=== PATIENT | female | born 1970 | race Two or more races ===

== ENCOUNTER 2021-04-03 19:14 | Inpatient (IN) | payer MEDICAID, OTHER ==
[~2021-04-03] VITALS: Ht 162.6 cm; Wt 62.5 kg
[2021-04-03] MEDS ORDERED: NALOXONE HCL 1MG/ML 2ML SYRINGE IV ONE (19:30)
[2021-04-03 20:14] LABS: Basophils # (auto) 0 10 ^3/uL (0-0.2); Basophils % (auto) 0.8 % (0.0-2.0); Eosinophils # (auto) 0.1 10 ^3/uL (0-0.8); Eosinophils % (auto) 3.5 % (0.0-7.0); Hematocrit 41.3 % (36.0-46.0); Hemoglobin 13.7 g/dL (12.2-16.2); Lymphocytes # (auto) 0.4 10 ^3/uL (0.4-5.4); Lymphocytes % (auto) 15.2 % (10.0-50.0); Mean Corpuscular Hemoglobin 32.6 pg (28.0-32.0); Mean Corpuscular Hgb Conc. 33.2 g/dL (32.0-36.0); Mean Corpuscular Volume 98.2 fL (80.0-100.0); Monocytes # (auto) 0.3 10 ^3/uL (0-1.3); Monocytes % (auto) 10.9 % (0.0-12.0); Neutrophils # (auto) 1.9 10 ^3/uL (1.6-8.6); Neutrophils % (auto) 69.6 % (37.0-80.0); Nucleated Red Blood Cells % 2.2 %; Red Blood Cells 4.21 10^6/uL (4.0-5.20); Red Cell Distribution Width 13.6 % (11.8-14.3); White Blood Cell 2.7 10^3/uL (4.4-10.8)
[2021-04-03 20:28] LABS: INR 0.97 (0.9-1.15); Partial Thromboplastin Time 28.2 sec (23.6-33.0)
[2021-04-03 20:33] LABS: Urine Bacteria FEW /hpf (None Seen); Urine Blood Negative /uL (Negative); Urine Budding Yeast FEW /hpf (None Seen); Urine Hyaline Cast MANY /lpf (0 - 2); Urine Mucus FEW (None Seen); Urine Specific Gravity 1.018 (1.001-1.035); Urine WBC 18 /hpf (0 - 5); Urine WBC Clumps PRESENT /hpf (None Seen)
[2021-04-03 20:33] LABS: Albumin 3.6 g/dL (3.4-5.0); Anion Gap 9 (5-15); BUN/Creatinine Ratio 14.5; Blood Alcohol < 3.0 mg/dL (0-5); Blood Urea Nitrogen 8 mg/dL (7-18); Calcium 8.5 mg/dL (8.5-10.1); Carbon Dioxide 25 mmol/L (21-32); Chloride 105 mmol/L (98-107); GFR African American 150 mL/min; GFR Non-African American 124 mL/min; Glucose 99 mg/dL (74-106); Potassium 3.7 mmol/L (3.5-5.1); Sodium 139 mmol/L (136-145)
[2021-04-03 20:36] LABS: Alanine Aminotransferase 82 U/L (13-56); Alkaline Phosphatase 81 U/L (45-117); Aspartate Aminotransferase 72 U/L (15-37); Bilirubin, Total 0.5 mg/dL (0.2-1.0); Total Protein 7.2 g/dL (6.4-8.2)
[2021-04-03 20:59] LABS: Alcohol, Urine < 3.0 mg/dL (0-10); Amphetamine Screen, Urine NEGATIVE (NEGATIVE); Barbiturate Scree,Urine NEGATIVE (NEGATIVE); Benzodiazephine Screen, Urine NEGATIVE (NEGATIVE); Cannabinoid Screen, Urine NEGATIVE (NEGATIVE); Cocaine Screen, Urine NEGATIVE (NEGATIVE); Opiate Scree,Urine NEGATIVE (NEGATIVE); Phencyclidine Screen, Urine NEGATIVE (NEGATIVE)
[2021-04-03] MEDS ORDERED: ONDANSETRON HCL 4 MG/2 ML VIAL IV PRN (22:00)
[2021-04-03] MEDS ORDERED: cefTRIAXone 1GM/50ML D5W 50 ML IV ONE (22:00)
[2021-04-03] MEDS ORDERED: hydrALAZINE HCL 20 MG/ML VL IV PRN (22:00)
[2021-04-03] MEDS ORDERED: ACETAMINOPHEN 325 MG TAB PO PRN (22:00)
[2021-04-04] MEDS ORDERED: VANCOMYCIN PER PHARMACY 0 MG IV SCH (00:15)
[2021-04-04] MEDS ORDERED: VANCOMYCIN 1GM/250ML 250 ML IV ONE ×2 (00:45→04:00)
[2021-04-04] MEDS ORDERED: hydrALAZINE HCL 10 MG TAB PO PRN (03:00)
[2021-04-04] MEDS ORDERED: ACETAMINOPHEN 325 MG TAB PO PRN (03:00)
[2021-04-04] MEDS ORDERED: ONDANSETRON HCL 4 MG/2 ML VIAL IV PRN (03:00)
[2021-04-04] MEDS: MORPHINE SULFATE INJECTION 2 MG/ML SYRG IV PRN ×2 (03:37→23:51)
[2021-04-04] MEDS ORDERED: DICL1GEL50 TOP (04:20)
[2021-04-04] MEDS ORDERED: MAGN241.6 PO (04:20)
[2021-04-04] MEDS ORDERED: BACL10TA PO (04:20)
[2021-04-04] MEDS ORDERED: FLUO20CA90 PO (04:20)
[2021-04-04] MEDS ORDERED: GABA-339 PO (04:20)
[2021-04-04] MEDS ORDERED: LOS25T PO (04:20)
[2021-04-04] MEDS ORDERED: IBUP800T26 PO (04:20)
[2021-04-04] MEDS ORDERED: PRE5T PO (04:20)
[2021-04-04] MEDS ORDERED: CHOL20002 PO (04:20)
[2021-04-04] MEDS ORDERED: AZAT50TA2 PO (04:20)
[2021-04-04] MEDS ORDERED: MAGN400T40 PO (04:20)
[2021-04-04 04:24] VITALS: BP 164/93
[2021-04-04 05:00] VITALS: BP 129/77
[2021-04-04] MEDS ORDERED: PIPERACILLIN-TAZOB 3.375GM 100 ML IV SCH (06:00)
[2021-04-04] MEDS ORDERED: cefTRIAXone 1GM/50ML D5W 50 ML IV SCH (09:00)
[2021-04-04 09:01] LABS: Basophils # (auto) 0 10 ^3/uL (0-0.2); Basophils % (auto) 0.8 % (0.0-2.0); Eosinophils # (auto) 0 10 ^3/uL (0-0.8); Eosinophils % (auto) 0.2 % (0.0-7.0); Hematocrit 40.8 % (36.0-46.0); Hemoglobin 13.8 g/dL (12.2-16.2); Lymphocytes # (auto) 0.5 10 ^3/uL (0.4-5.4); Lymphocytes % (auto) 14.1 % (10.0-50.0); Mean Corpuscular Hgb Conc. 33.7 g/dL (32.0-36.0); Mean Corpuscular Volume 97.8 fL (80.0-100.0); Monocytes # (auto) 0.3 10 ^3/uL (0-1.3); Monocytes % (auto) 7.9 % (0.0-12.0); Neutrophils # (auto) 2.6 10 ^3/uL (1.6-8.6); Nucleated Red Blood Cells % 0.7 %; Red Blood Cells 4.16 10^6/uL (4.0-5.20); Red Cell Distribution Width 13.4 % (11.8-14.3); White Blood Cell 3.4 10^3/uL (4.4-10.8)
[2021-04-04 09:13] LABS: Albumin 3.6 g/dL (3.4-5.0); Calcium 8.3 mg/dL (8.5-10.1); Potassium 3.4 mmol/L (3.5-5.1)
[2021-04-04 09:14] VITALS: BP 142/82
[2021-04-04 09:19] LABS: BUN/Creatinine Ratio 17.4; Bilirubin, Total 0.5 mg/dL (0.2-1.0); Total Protein 6.9 g/dL (6.4-8.2)
[2021-04-04] MEDS ORDERED: PROP60CA34 PO (09:38)
[2021-04-04] MEDS ORDERED: HYDR-4833 PO (09:38)
[2021-04-04] MEDS ORDERED: CARB200T4 PO (09:38)
[2021-04-04] MEDS ORDERED: CHOL20007 PO (09:38)
[2021-04-04] MEDS: ASCORBIC ACID 500 MG TAB PO SCH (10:00)
[2021-04-04] MEDS ORDERED: PANTOPRAZOLE 40 MG TAB PO SCH (10:00)
[2021-04-04] MEDS: FAMOTIDINE 20 MG TAB PO SCH ×2 (10:00→21:46)
[2021-04-04] MEDS: ASPirin 81 mg TAB PO SCH (10:00)
[2021-04-04 12:33] VITALS: BP 139/80
[2021-04-04] MEDS ORDERED: LORazepam 2MG/ML-1ML VIAL IV PRN (14:45)
[2021-04-04] MEDS ORDERED: VANCOMYCIN 1GM/250ML 250 ML IV SCH (16:00)
[2021-04-04 17:56] VITALS: BP 135/87
[2021-04-04] MEDS ORDERED: FLUoxetine HCL 20 MG CAP PO SCH (18:15)
[2021-04-04] MEDS ORDERED: POTASSIUM CHLORIDE 20 MEQ, LIDOCAINE 1% (LOCAL ANESTH.) 2 ML in SODIUM CHL 0.9% 100 ML IV ONE (18:15)
[2021-04-04] MEDS: levoFLOXacin 500MG 100 ML IV SCH (18:30)
[2021-04-04 22:00] VITALS: BP 105/83
[2021-04-04] MEDS ORDERED: ATORVASTATIN 20 MG TAB PO SCH ×2 (22:00)
[2021-04-05 05:00] VITALS: BP 138/76
[2021-04-05] MEDS: HYDROcodone-ACET 5/325MG TAB PO PRN ×2 (05:38→14:17)
[2021-04-05 06:34] LABS: Basophils # (auto) 0 10 ^3/uL (0-0.2); Basophils % (auto) 0.2 % (0.0-2.0); Eosinophils # (auto) 0 10 ^3/uL (0-0.8); Eosinophils % (auto) 0.2 % (0.0-7.0); Hematocrit 39.2 % (36.0-46.0); Hemoglobin 13.3 g/dL (12.2-16.2); Lymphocytes # (auto) 0.5 10 ^3/uL (0.4-5.4); Lymphocytes % (auto) 19.3 % (10.0-50.0); Mean Corpuscular Hemoglobin 32.8 pg (28.0-32.0); Mean Corpuscular Hgb Conc. 33.8 g/dL (32.0-36.0); Mean Corpuscular Volume 97.1 fL (80.0-100.0); Monocytes # (auto) 0.3 10 ^3/uL (0-1.3); Monocytes % (auto) 12.2 % (0.0-12.0); Neutrophils # (auto) 1.8 10 ^3/uL (1.6-8.6); Neutrophils % (auto) 68.1 % (37.0-80.0); Nucleated Red Blood Cells % 0.3 %; Red Blood Cells 4.04 10^6/uL (4.0-5.20); Red Cell Distribution Width 13.6 % (11.8-14.3); White Blood Cell 2.6 10^3/uL (4.4-10.8)
[2021-04-05 07:08] LABS: Calcium 8.4 mg/dL (8.5-10.1); Potassium 3.7 mmol/L (3.5-5.1)
[2021-04-05 07:14] LABS: Albumin 3.5 g/dL (3.4-5.0); BUN/Creatinine Ratio 25.6; Bilirubin, Direct 0.3 mg/dL (0-0.2); Bilirubin, Total 0.9 mg/dL (0.2-1.0); Total Protein 6.8 g/dL (6.4-8.2)
[2021-04-05 08:30] VITALS: BP 146/91
[2021-04-05] MEDS: ASCORBIC ACID 500 MG TAB PO SCH (09:22)
[2021-04-05] MEDS: FAMOTIDINE 20 MG TAB PO SCH (09:22)
[2021-04-05] MEDS: ASPirin 81 mg TAB PO SCH (09:23)
[2021-04-05] MEDS: MORPHINE SULFATE INJECTION 2 MG/ML SYRG IV PRN ×2 (10:20→18:06)
[2021-04-05 12:30] VITALS: BP 132/87
[2021-04-05 13:37] LABS: Hepatitis A Ab IgM Negative
[2021-04-05 13:44] LABS: Folate (Folic Acid) 12.54 ng/mL (5.38-24)
[2021-04-05 13:57] LABS: Hepatitis B Core IgM Negative
[2021-04-05 14:05] LABS: Hepatitis C Antibody Negative (Negative)
[2021-04-05 17:00] VITALS: BP 133/90
[2021-04-05] MEDS: levoFLOXacin 500MG 100 ML IV SCH (17:59)
[2021-04-05] MEDS ORDERED: LEVO500T31 PO ×2 (18:24)
[2021-04-05] MEDS ORDERED: ZINC220T6 PO (18:24)
[2021-04-05] MEDS ORDERED: CHOL20007 PO (18:24)
[2021-04-05] MEDS ORDERED: ASCO500T11 PO (18:24)
[2021-04-05 18:36] VITALS: BP 129/88
== END 2021-04-05 20:20 | disposition home health service (06) | DRG 720 ==
LOC: EDBD 19:14 → ER 19:18 → OVERFLOW 21:46 → CENTRAL 22:22 → OVERFLOW 23:20 → EAST 04-04 01:44
PROVIDERS: ADMIT Nurse Practitioner; ATTEND Internal Medicine
DX: A41.9 Sepsis, unspecified organism (principal); J12.82 Pneumonia due to coronavirus disease 2019; G93.41 Metabolic encephalopathy; U07.1 COVID-19; N39.0 Urinary tract infection, site not specified; F32.A Depression, unspecified; M79.7 Fibromyalgia; G89.4 Chronic pain syndrome; E87.6 Hypokalemia; I10 Essential (primary) hypertension; M47.812 Spondylosis without myelopathy or radiculopathy, cervical region; Z82.49 Family history of ischemic heart disease and other diseases of the circulatory system; Z90.710 Acquired absence of both cervix and uterus; Z88.0 Allergy status to penicillin
CPT/HCPCS: 36415; 70450; 71045; 72125; 72128; 72131; 76705; 80048; 80053; 80061; 80074; 80076; 80307; 80320; 81001; 82306; 82607; 82746; 83605; 84443; 84484; 84702; 85025; 85610; 85730; 87040; 87086; 87426; 93017; 93306; 95819; 96365; 96375; 97116; 97530; G0378; J0696; J1956; J2001

== ENCOUNTER 2024-09-10 13:58 | Inpatient (IN) | payer OTHER, MEDICAID ==
[~2024-09-10] VITALS: Ht 157.5 cm; Wt 67.7 kg
[~2024-09-10 13:58] MED LIST: ASCO500T11 PO; AZAT50TA43 PO; BACL10TA PO; CARB200T4 PO; CHOL20002 PO; CHOL20007 PO; DICL1GEL73 TOP; FLUO-470 PO; GABA-339 PO; HYDR-4833 PO; IBUP-1455 PO; LEVO500T31 PO; LOS25T PO; MAGN241.6 PO; PRE5T PO; PROP60CA34 PO; ZINC220T6 PO
--- NOTE | 2024-09-10 14:19 | ED.PDOC ---
Altered Mental Status HPI Comments 54 y/o F, BIBA, presents to the ED for CC of ALOC. EMS reports, patient is coming from home where family called emergency medical services d/t patient displaying decreased alertness with the associated abdominal pain x1day. At this time, patient is A&Ox1 to person only. No other symptoms or modifying factors obtainable at this time. Time Seen by MD: 14:14 Primary Care Provider: SUDHEER Reviewed Notes: Nurses Notes, Per Assessment Nurse Notes, Medications, Allergies Allergies: Coded Allergies: Penicillins (Verified Allergy, Severe, ANAPHYLAXIS, 04/03/21) PER DAUGHTER PT DEVELOPS RASH AND THROAT CLOSES Home Meds Active Scripts Levofloxacin (Levaquin) 500 Mg Tab, 500 MG PO DAILY, #10 MG Prov:MADAY BORJAS MD 04/05/21 Zinc Sulfate (Zinc Sulfate) 220 Mg Tab, 220 MG PO DAILY, #10 TAB Prov:MADAY BORJAS MD 04/05/21 Ascorbic Acid (VITAMIN C TABLET) 500 Mg Tb, 500 MG PO DAILY, #20 TAB Prov:MADAY BORJAS MD 04/05/21 Reported Medications Carbamazepine (Carbamazepine) 200 Mg Tab, 200 MG PO Q8HR for 30 Days, MG 04/04/21 Cholecalciferol (VITAMIN D3) 2,000 Unit Tab, 1 TAB PO DAILY, #30 TAB 5 Refills 04/04/21 Propranolol Hcl (Inderal La) 60 Mg Cap, 60 MG PO TID, CAP 04/04/21 Hydrocodone-Acetaminophen ([place] 5-325 mg) 5-325 Tab, 1 TAB PO Q8HPRN PRN for ANXIETY, #20 TAB 04/04/21 Fluoxetine HCl (Fluoxetine HCl) 20 Mg Cap, 1 CAP PO DAILYPRN 04/04/21 Azathioprine (Azathioprine) 50 Mg Tab, 3 TAB PO DAILYPRN 04/04/21 Magnesium Oxide (mg Supplement (Magnesium-Oxide) 400 Mg Tab, 1 TAB PO DAILYPRN 04/04/21 Cholecalciferol (VITAMIN D3) 2,000 Unit Tab, 1 CAP PO DAILYPRN 04/04/21 Losartan Potassium (Losartan Potassium) 25 Mg Tab, 1 TAB PO QAM for blood pressure 04/04/21 Prednisone (Prednisone) 5 Mg Tab, 1 TAB PO DAILYPRN 04/04/21 Diclofenac Sodium (Topical) (Diclofenac Sodium) 1 % Gel, TOP 04/04/21 Baclofen (Baclofen) 10 Mg Tab, 1 TAB PO TID 04/04/21 Gabapentin (Gabapentin) 600 Mg Tab, TAB PO 04/04/21 Ibuprofen Micronized (Ibuprofen) 800 Mg Tab, 1 TAB PO BIDPRN PRN for Generalized pain per pt 04/04/21 Information Source: Patient, Emergency Med Personnel Mode of Arrival: EMS Severity: Moderate Timing: Days Duration: Since onset Prehospital treatment: None Quality: Decreased Alertness Recent: None History of: None Associated Signs and Symptoms: None Past Medical History PAST MEDICAL HISTORY: Unknown, Unobtainable Surgical History: Unknown, Unobtainable 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: Unknown, Unobtainable Family History Family History: Unknown, Unobtainable Social History Smoker: Unknown, Unobtainable Alcohol: Unknown, Unobtainable Drugs: Unknown, Unobtainable Lives In: Home Unable to Obtain due to: Altered Mental Status Physical Exam General Appearance: No Apparent Distress, Normal HEENT: Normal ENT Inspection, Pharynx Normal, TMs Normal Neck: Full Range of Motion, Non-Tender, Normal, Normal Inspection Respiratory: Chest Non-Tender, Lungs Clear, No Accessory Muscle Use, No Respiratory Distress, Normal Breath Sounds Cardiovascular: No Edema, No Murmur, No Gallop, Normal Peripheral Pulses, R egular Rate/Rhythm Breast Exam: Deferred Gastrointestinal: Diffuse (tenderness), No Organomegaly, No Pulsatile Mass, Normal Bowel Sounds Genitalia: Deferred Pelvic: Deferred Rectal: Deferred Extremities: No calf tenderness, Normal capillary refill, Normal inspection, Normal range of motion, Non-tender, No pedal edema Musculoskeletal : Apperance: Normal 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 Was a procedure done?: No Differential Diagnosis (ALOC) Differential Diagnosis: Dehydration, Hypoglycemia, Encephalopathy, Other (UTI) X-Ray, Labs, Meds, VS Vital Signs Date Time Temp Pulse Resp B/P (MAP) Pulse Ox O2 Delivery O2 Flow Rate FiO2 09/10/24 16:00 82 09/10/24 14:59 71 15 96 Room Air* 0 21 09/10/24 14:31 80 19 193/81 (118) 97 09/10/24 14:11 79 09/10/24 14:00 98.2 82 16 174/94 (120) 100 98.2 Lab Test 09/10/24 15:33 09/10/24 14:24 Range/Units Troponin I High Sensitivity Pending 6 </=34 ng/L White Blood Count 5.1 4.4-10.8 10^3/uL Red Blood Count 4.60 4.0-5.20 10^6/uL Hemoglobin 15.0 12.2-16.2 g/dL Hematocrit 43.3 36.0-46.0 % Mean Corpuscular Volume 94.1 80.0-100.0 fL Mean Corpuscular Hemoglobin 32.6 H 28.0-32.0 pg Mean Corpuscular Hemoglobin Concent 34.6 32.0-36.0 g/dL Red Cell Distribution Width 12.9 11.8-14.3 % Platelet Count 183 140-450 10^3/uL Mean Platelet Volume 8.4 6.9-10.8 fL Neutrophils (%) (Auto) 70.9 37.0-80.0 % Lymphocytes (%) (Auto) 18.2 10.0-50.0 % Monocytes (%) (Auto) 9.3 0.0-12.0 % Eosinophils (%) (Auto) 0.9 0.0-7.0 % Basophils (%) (Auto) 0.7 0.0-2.0 % Neutrophils # (Auto) 3.6 1.6-8.6 10 ^3/uL Lymphocytes # (Auto) 0.9 0.4-5.4 10 ^3/uL Monocytes # (Auto) 0.5 0-1.3 10 ^3/uL Eosinophils # (Auto) 0 0-0.8 10 ^3/uL Basophils # (Auto) 0 0-0.2 10 ^3/uL Nucleated Red Blood Cells 0.2 % Sodium Level 132 L 136-145 mmol/L Potassium Level 3.3 L 3.5-5.1 mmol/L Chloride Level 96 L 98-107 mmol/L Carbon Dioxide Level 25 20-31 mmol/L Anion Gap 11 5-15 Blood Urea Nitrogen 7 L 9-23 mg/dL Creatinine 0.58 0.550-1.02 mg/dL Glomerular Filtration Rate Calc 107 >90 mL/min BUN/Creatinine Ratio 12.1 10.0-20.0 Serum Glucose 99 74-106 mg/dL Calcium Level 9.5 8.7-10.4 mg/dL Current Medications Medications (Trade) Dose Ordered Sig/Sumit Route Start Time Stop Time Status Last Admin Sodium Chloride 1,000 ml @ 1,000 mls/hr Q1H ONCE IV 09/10/24 15:00 09/10/24 15:59 DC 09/10/24 16:11 Ondansetron HCl (Zofran) 4 mg ONCE ONCE IV 09/10/24 15:00 09/10/24 15:01 DC 09/10/24 16:11 Time of 1ST Reevaluation: 14:44 Reevaluation 1ST: Unchanged Patient Education/Counseling: Diagnosis, Treatment Family Education/Counseling: No Family Present Departure 1 Departure Time of Disposition: 16:27 (Patient with worsening altered mental status. We will admit patient for further workup and expert consultation) Impression: Primary Impression: Metabolic encephalopathy Additional Impressions: Generalized weakness Intractable abdominal pain Disposition: ADMITTED INPATIENT Admit to: Med Surg Condition: Serious Critical Care Note Critical Care Time?: Yes Critical care comment: Intractable abdominal pain Authorized and Performed by: Angelica Donovan MD Total critical care time: Approximately 38 minutes Due to a high probability of clinically significant, life threatening deterioration, the patient required my highest level of preparedness to intervene emergently and I personally spent this critical care time directly and personally managing the patient. This critical care time included obtaining a hi story; examining the patient; pulse oximetry; ordering and review of studies; arranging urgent treatment with development of a management plan; evaluation of patient's response to treatment; frequent reassessment; and, discussions with other providers. This critical care time was performed to assess and manage the high probability of imminent, life-threatening deterioration that could result in multi-organ failure. It was exclusive of separately billable procedures and treating other patients and teaching time. Please see my other sections and the rest of the note for further information on patient assessment and treatment. Stability Stability form required: No Heart Score Heart Score: Heart Score Response (Comments) Value History N/A 0 EKG N/A 0 Age N/A 0 Risk Factors N/A 0 Troponin N/A 0 Total 0 I personally scribed for ANGELICA DONOVAN MD ([email or web address]) on 09/10/24 at 14:18. Electronically submitted by Dari Pereyra ([email or web address]). ANGELICA DONOVAN MD Sep 10, 2024 14:18
[2024-09-10 14:44] LABS: Anion Gap 11 (5-15); Calcium 9.5 mg/dL (8.7-10.4); Carbon Dioxide 25 mmol/L (20-31)
[2024-09-10 14:46] LABS: Basophils # (auto) 0 10 ^3/uL (0-0.2); Basophils % (auto) 0.7 % (0.0-2.0); Eosinophils # (auto) 0 10 ^3/uL (0-0.8); Eosinophils % (auto) 0.9 % (0.0-7.0); Hematocrit 43.3 % (36.0-46.0); Lymphocytes # (auto) 0.9 10 ^3/uL (0.4-5.4); Lymphocytes % (auto) 18.2 % (10.0-50.0); Mean Corpuscular Hemoglobin 32.6 pg (28.0-32.0); Mean Corpuscular Hgb Conc. 34.6 g/dL (32.0-36.0); Mean Corpuscular Volume 94.1 fL (80.0-100.0); Monocytes # (auto) 0.5 10 ^3/uL (0-1.3); Monocytes % (auto) 9.3 % (0.0-12.0); Neutrophils # (auto) 3.6 10 ^3/uL (1.6-8.6); Neutrophils % (auto) 70.9 % (37.0-80.0); Nucleated Red Blood Cells % 0.2 %; Platelet Count (auto) 183 10^3/uL (140-450); Red Cell Distribution Width 12.9 % (11.8-14.3); White Blood Cell 5.1 10^3/uL (4.4-10.8)
[2024-09-10 14:49] LABS: BUN/Creatinine Ratio 12.1 (10.0-20.0); Glucose 99 mg/dL (74-106)
[2024-09-10 14:50] LABS: Blood Urea Nitrogen 7 mg/dL (9-23); Chloride 96 mmol/L (98-107); Potassium 3.3 mmol/L (3.5-5.1); Sodium 132 mmol/L (136-145)
[2024-09-10 14:59] VITALS: PULSE 71; RESP 15; O2SAT 96
--- NOTE | 2024-09-10 15:44 | ECG ---
[facility] Test Date: 2024-09-10 Test Time: 14:11:24 Pat Name: KRYSTAL DIAZ Department: ED Room: 0240 Gender: F Virologist: MARVIN : 1970 Requested By: ANGELICA CARRION Order Number: [id number] Reading MD: Zac Hopper Measurements Intervals [place] Rate: 79 P: 72 MD: 160 QRS: -45 QRSD: 91 T: 86 QT: 379 QTc: 435 Interpretive Statements Sinus rhythm LAD, consider left anterior fascicular block Nonspecific T abnrm, anterolateral leads Electronically Signed On 09-11-2024 21:10:38 PDT by Zac Hopper Please click the below link to view image of tracing.
--- NOTE | 2024-09-10 15:52 | DVH ---
EXAM: CT HEAD WITHOUT CONTRAST INDICATION: ams TECHNIQUE: CT of the head without intravenous contrast. Radiation Dose : 1. Head: CT Dose: CTDI volume is 49.04 mGy. Dose-length product is 786.42 mGy*cm The dose indicators for CT are the volume Computed Tomography (CT) Dose Index (CTDIvol) and the Dose Length Product (DLP), and are measured in units of mGy and mGy-cm, respectively. These indicators are not patient dose, but values generated from the CT scanner acquisition factors. The report includes radiation exposure data for exposures received during this examination. COMPARISON: HEAD WITHOUT CONTRAST on DOS: 04/03/21 FINDINGS: There is no evidence of acute intracranial hemorrhage, extra-axial collection, mass effect, midline s hift, herniation or hydrocephalus. The ventricles, sulci and cisterns are age appropriate. The ho-white differentiation is intact. The visualized paranasal sinuses and mastoid air cells are clear. The surrounding soft tissues and osseous structures are unremarkable. IMPRESSION: 1. No acute intracranial abnormality. Radiation optimization: All CT scans at this facility use at least one of these dose optimization siena hniques: automated exposure control mA and/or kV adjustment per patient size (includes targeted exam s where dose is matched to clinical indication) or iterative reconstruction.
--- NOTE | 2024-09-10 15:59 | DVH ---
Exam: CT CT AB PEL WITH IV CON ONLY History: abdominal pain Comparison Study: None TECHNIQUE: Multidetector CT of the abdomen and pelvis with IV contrast. Axial, coronal and sagittal m ultiplanar reformats were obtained from the axial data set by the technologist. Radiation Dose Information: CT Dose: CTDI volume is 10.2 mGy. Dose-length product is 528.05 mGy*cm FINDINGS: Left lower lobe pleural-based bullae measuring up to 0.6 x 2 cm. Bibasilar atelectasis. partially vi sualized heart is unremarkable. Liver, spleen, gallbladder, pancreas and adrenal glands are unremarkable. Kidneys, ureters and urinary bladder unremarkable. Uterus and adnexa unremarkable. Stomach is unremarkable. Small bowel loops unremarkable. Appendix is unremarkable. Large bowel is un remarkable. No evidence of intraperitoneal free air or free fluid. No evidence of aortic aneurysm or dissection. No significant lymphadenopathy. Soft tissues unremarkable. Tiny fat containing umbilical hernia. No destructive osseous lesions are n oted IMPRESSION: No evidence of acute abdominopelvic abnormalities.
[2024-09-10] MEDS: SODIUM CHLORIDE 0.9% 1,000 ML IV ONE (16:11)
[2024-09-10] MEDS: IOHEXOL 300 MG/ML 100ML BOTTLE IJ ONE (16:11)
[2024-09-10] MEDS: ONDANSETRON HCL 4 MG/2 ML VIAL IV ONE (16:11)
--- NOTE | 2024-09-10 16:19 | DVH ---
CHEST RADIOGRAPH Indication: ams Technique: Single frontal view of the chest was obtained COMPARISON: CHEST PORTABLE on DOS: 04/03/21 FINDINGS: Lines and Tubes: None Lungs: Clear Pleura: No effusion. No pneumothorax. Cardiomediastinal contours: Unremarkable Bones: Unremarkable IMPRESSION: 1. No acute disease.
[2024-09-10 17:09] LABS: Urine Amorphous Crystal FEW /hpf (None Seen); Urine Bacteria FEW /hpf (None Seen); Urine Blood Negative /uL (Negative); Urine Budding Yeast MODERATE /hpf (None Seen); Urine Clarity Turbid (Clear); Urine Color Colorless (Yellow); Urine Mucus FEW (None Seen); Urine Protein, UAD Negative (Negative); Urine Squamous Epithelial Cell FEW /hpf (<5); Urine Urobilinogen Normal (Negative); Urine WBC < 1 /HPF (0-5)
[2024-09-10] MEDS: HYDROcodone-ACET 5/325MG TAB PO ONE (17:13)
[2024-09-10 20:48] VITALS: PULSE 82; RESP 18; O2SAT 98
[2024-09-10] MEDS: SODIUM CHLORIDE 0.9% 500 ML IV ONE (21:00)
[2024-09-10] MEDS: TOPIRAMATE 25 MG TAB PO SCH (21:40)
[2024-09-10] MEDS: POTASSIUM CHL 20 Meq TABLET PO ONE (21:40)
[2024-09-10] MEDS: ACETAMINOPHEN 325 MG TAB PO PRN (21:44)
[2024-09-10 22:02] LABS: Opiate Scree,Urine Pos (NEGATIVE)
[2024-09-10 22:04] LABS: Amphetamine Screen, Urine Neg (NEGATIVE); Barbiturate Scree,Urine Neg (NEGATIVE); Benzodiazephine Screen, Urine Neg (NEGATIVE); Cannabinoid Screen, Urine Neg (NEGATIVE); Cocaine Screen, Urine Neg (NEGATIVE); Phencyclidine Screen, Urine Neg (NEGATIVE)
[2024-09-10] MEDS: ONDANSETRON HCL 4 MG/2 ML VIAL IV PRN (22:52)
[2024-09-10 22:54] VITALS: BP 137/86; PULSE 85; RESP 19; TEMP 98.5; O2SAT 98
[2024-09-10 23:10] VITALS: PULSE 81; RESP 16; O2SAT 98
[2024-09-10] MEDS ORDERED: METH-1182 PO (23:59)
[2024-09-11] VITALS (7 sets, daily range): BP systolic 117–153; BP diastolic 55–90; PULSE 72–100; RESP 15–20; TEMP 98–99.9; O2SAT 97–100
[2024-09-11] MEDS ORDERED: TOPI25TA84 PO
[2024-09-11] MEDS ORDERED: [UNRECOGNIZED DRUG - CODE] SC (00:02)
[2024-09-11] MEDS ORDERED: MORP15TA PO (00:02)
--- NOTE | 2024-09-11 03:18 | DVHHP2 ---
History of Present Illness Reason for Visit: Altered mental status History of Present Illness 54-year-old female presents for evaluation of altered mental status. Patient became confused, not making sense and very sleepy for the past two days. Daughter reports mother normally acts this way when she has seizures. She also relays that her mom has not taken gabapentin for the past three days because she ran out of it. No unilateral weakness or slurred speech. No headache or blurred vision. Patient is currently alert and oriented x3. Past Medical History Seizures, hypertension, fibromyalgia Past Surgical History None Family History Noncontributory Smoke: No ALCOHOL: none Drugs: None Lives: with Family Review of Systems Review of Systems Review of systems are currently negative otherwise addressed in HPI. Allergies: Coded Allergies: Penicillins (Verified Allergy, Severe, ANAPHYLAXIS, 04/03/21) PER DAUGHTER PT DEVELOPS RASH AND THROAT CLOSES Medications Current Medications Medications Dose Ordered Sig/Sumit Route Start Time Stop Time Status Last Admin Dose Admin Losartan Potassium 25 mg DAILY PO 09/11/24 10:00 Topiramate 50 mg BID PO 09/10/24 22:00 09/10/24 21:40 50 MG Ondansetron HCl 4 mg Q4HP PRN IV 09/10/24 19:00 09/10/24 22:52 4 MG Acetaminophen 650 mg Q6HP PRN PO 09/10/24 19:00 09/10/24 21:44 650 MG Carbamazepine 200 mg TID PO 09/11/24 06:00 UNV Exam Vital Signs Vital Signs Date Time Temp Pulse Resp B/P (MAP) Pulse Ox O2 Delivery O2 Flow Rate FiO2 09/11/24 01:00 98.5 78 19 153/88 (109) 98 98.5 09/10/24 23:10 Room Air* 0 21 Exam Gen: 54-year-old female in mild distress Skin: Warm, dry, normal color and texture, no rash. HEENT: Normocephalic atraumatic, mucous membranes moist and pink. Neck: Cervical and supraclavicular nodes normal without enlargement, trachea is midline, thyroid gland is normal without masses. Pulmonary: Clear to auscultation and percussion bilaterally. Cardiac: Regular rate and rhythm. No murmur Abdomen: Soft, nontender, nondistended, bowel sounds present all 4 quadrants, no guarding, no rigidity, no organomegaly. Extremities: No cyanosis, clubbing, no edema Neuro: Cranial nerves II through XII grossly intact, normal affect and speech, no focal motor deficits. Labs/Xrays ORDERING PHYSICIAN: ANGELICA CARRION MD PROCEDURE(s): ABPLIV - CT AB PEL WITH IV CON ONLY REASON: abdominal pain ORDER NUMBER(s): [id number], ACCESSION NUMBER(s): [id number] Exam: CT CT AB PEL WITH IV CON ONLY History: abdominal pain Comparison Study: None TECHNIQUE: Multidetector CT of the abdomen and pelvis with IV contrast. Axial, coronal and sagittal multiplanar reformats were obtained from the axial data set by the technologist. Radiation Dose Information: CT Dose: CTDI volume is 10.2 mGy. Dose-length product is 528.05 mGy*cm FINDINGS: Left lower lobe pleural-based bullae measuring up to 0.6 x 2 cm. Bibasilar atelectasis. partially visualized heart is unremarkable. Liver, spleen, gallbladder, pancreas and adrenal glands are unremarkable. Kidneys, ureters and urinary bladder unremarkable. Uterus and adnexa unremarkable. Stomach is unremarkable. Small bowel loops unremarkable. Appendix is unremar kable. Large bowel is unremarkable. No evidence of intraperitoneal free air or free fluid. No evidence of aortic aneurysm or dissection. No significant lymphadenopathy. Soft tissues unremarkable. Tiny fat containing umbilical hernia. No destructive osseous lesions are noted IMPRESSION: No evidence of acute abdominopelvic abnormalities. ATED BY: AARTI POWELL DO DICTATED DATE/TIME: 09/10/24 8707 ORDERING PHYSICIAN: ANGELICA CARRION MD PROCEDURE(s): HWOCT - HEAD WITHOUT CONTRAST REASON: ams ORDER NUMBER(s): [id number], ACCESSION NUMBER(s): [id number] EXAM: CT HEAD WITHOUT CONTRAST INDICATION: ams TECHNIQUE: CT of the head without intravenous contrast. Radiation Dose : 1. Head: CT Dose: CTDI volume is 49.04 mGy. Dose-length product is 786.42 mGy*cm The dose indicators for CT are the volume Computed Tomography (CT) Dose Index (CTDIvol) and the Dose Length Product (DLP), and are measured in units of mGy and mGy-cm, respectively. These indicators are not patient dose, but values generated from the CT scanner acquisition factors. The report includes radiation exposure data for exposures received during this examination. COMPARISON: HEAD WITHOUT CONTRAST on DOS: 04/03/21 FINDINGS: There is no evidence of acute intracranial hemorrhage, extra-axial collection, mass effect, midline shift, herniation or hydrocephalus. The ventricles, sulci and cisterns are age appropriate. The ho-white differentiation is intact. The visualized paranasal sinuses and mastoid air cells are clear. The surrounding soft tissues and osseous structures are unremarkable. IMPRESSION: 1. No acute intracranial abnormality. Radiation optimization: All CT scans at this facility use at least one of these dose optimization techniques: automated exposure control mA and/or kV adjustment per patient size (includes targeted exams where dose is matched to clinical indication) or iterative reconstruction. ATED BY: SUNITA QURESHI MD DICTATED DATE/TIME: 09/10/24 1550 SIGNED BY: SUNITA QURESHI MD Labs Test 09/10/24 17:30 09/10/24 16:45 09/10/24 14:24 Range/Units Troponin I High Sensitivity 12 </=34 ng/L Urine Color Colorless Yellow Urine Clarity Turbid H Clear Urine pH 8.0 5.0-9.0 Urine Specific [place] 1.050 H 1.001-1.035 Urine Protein Negative Negative Urine Ketones Negative Negative Urine Blood Negative Negative /uL Urine Nitrite Negative Negative Urine Bilirubin Negative Negative Urine Urobilinogen Normal Negative mg/dL Urine Leukocyte Esterase Negative Negative /uL Urine RBC <1 0 - 4 /hpf Urine Microscopic WBC < 1 0-5 /HPF Urine Squamous Epithelial Cells Few <5 /hpf Urine Amorphous Crystals Few None Seen /hpf Urine Bacteria Few H None Seen /hpf Urine Mucus Few None Seen Urine Yeast (Budding) Moderate None Seen /hpf Urine Glucose Normal Normal mg/dL Urine Opiates Screen Pos NEGATIVE Urine Fentanyl Screen Neg NEGATIVE Urine Barbiturates Screen Neg NEGATIVE Urine Phencyclidine Screen Neg NEGATIVE Urine Amphetamines Screen Neg NEGATIVE Urine Benzodiazepines Screen Neg NEGATIVE Urine Cocaine Screen Neg NEGATIVE Urine Cannabinoids Screen Neg NEGATIVE White Blood Count 5.1 4.4-10.8 10^3/uL Red Blood Count 4.60 4.0-5.20 10^6/uL Hemoglobin 15.0 12.2-16.2 g/dL Hematocrit 43.3 36.0-46.0 % Mean Corpuscular Volume 94.1 80.0-100.0 fL Mean Corpuscular Hemoglobin 32.6 H 28.0-32.0 pg Mean Corpuscular Hemoglobin Concent 34.6 32.0-36.0 g/dL Red Cell Distribution Width 12.9 11.8-14.3 % Platelet Count 183 140-450 10^3/uL Mean Platelet Volume 8.4 6.9-10.8 fL Neutrophils (%) (Auto) 70.9 37.0-80.0 % Lymphocytes (%) (Auto) 18.2 10.0-50.0 % Monocytes (%) (Auto) 9.3 0.0-12.0 % Eosinophils (%) (Auto) 0.9 0.0-7.0 % Basophils (%) (Auto) 0.7 0.0-2.0 % Neutrophils # (Auto) 3.6 1.6-8.6 10 ^3/uL Lymphocytes # (Auto) 0.9 0.4-5.4 10 ^3/uL Monocytes # (Auto) 0.5 0-1.3 10 ^3/uL Eosinophils # (Auto) 0 0-0.8 10 ^3/uL Basophils # (Auto) 0 0-0.2 10 ^3/uL Nucleated Red Blood Cells 0.2 % Sodium Level 132 L 136-145 mmol/L Potassium Level 3.3 L 3.5-5.1 mmol/L Chloride Level 96 L 98-107 mmol/L Carbon Dioxide Level 25 20-31 mmol/L Anion Gap 11 5-15 Blood Urea Nitrogen 7 L 9-23 mg/dL Creatinine 0.58 0.550-1.02 mg/dL Glomerular Filtration Rate Calc 107 >90 mL/min BUN/Creatinine Ratio 12.1 10.0-20.0 Serum Glucose 99 74-106 mg/dL Calcium Level 9.5 8.7-10.4 mg/dL Assessment/Plan Assessment/Plan Assessment Acute encephalopathy Possible seizure activity Hypokalemia Plan Admit the patient to Med surge to the hospitalist Seizure precautions in place Resume home medications Continue treatment per orders Plan discussed with: Patient, Daughter My Orders Orders - SAM FOSTER AGACN Procedure Category Date Status Time Losartan Tablet PHA 09/11/24 In Process (Cozaar Tablet) 10:00 Topiramate (Topamax) PHA 09/10/24 In Process 22:00 Admit ADMIT 09/10/24 Transmitted 18:56 Ondansetron Hcl PHA 09/10/24 In Process (Zofran) 19:00 Comprehensive LAB 09/11/24 Logged Metabolic Panel 04:00 Condition: Stable ANIBAL 09/10/24 In Process 18:56 Acetaminophen Tablet PHA 09/10/24 In Process (Tylenol Tablet) 19:00 Bedrest With Bathroom ANIBAL 09/10/24 In Process Privileg 18:56 Hepatitis B Surface LAB 09/10/24 Logged Antigen 23:21 Hepatitis C Antibody LAB 09/10/24 Logged 23:21 Carbamazepine Tablet PHA 09/11/24 Logged (Tegretol Tablet) 06:00 Date of Service: Sep 10, 2024 Billing Provider: SAM FOSTER Common Visit Codes: [id number] INP/OBS CARE (HIGH) ASM FOSTER Sep 11, 2024 03:18
[2024-09-11 06:02] LABS: Alanine Aminotransferase 10 U/L (7-40); Albumin 4.5 g/dL (3.2-4.8); Alkaline Phosphatase 68 U/L (46-116); Anion Gap 12 (5-15); Aspartate Aminotransferase 15 U/L (13-40); Bilirubin, Total 0.9 mg/dL (0.2-1.0); Calcium 9.4 mg/dL (8.7-10.4); Carbon Dioxide 21 mmol/L (20-31); Chloride 101 mmol/L (98-107); Total Protein 7.1 g/dL (5.7-8.2)
[2024-09-11 06:05] LABS: BUN/Creatinine Ratio 8.6 (10.0-20.0); Blood Urea Nitrogen < 5 mg/dL (9-23); Glucose 113 mg/dL (74-106); Potassium 3.4 mmol/L (3.5-5.1); Sodium 134 mmol/L (136-145)
[2024-09-11] MEDS: carBAMazepine 200 MG TAB PO SCH (06:10)
[2024-09-11] MEDS: GABAPENTIN 300 MG CAP PO SCH (09:06)
[2024-09-11] MEDS: LOSARTAN POTASSIUM 25 MG TAB PO SCH (09:07)
--- NOTE | 2024-09-11 10:02 | DVHPN2 ---
Review of systems Admitted for ALOC, seizures Has chronic pain due to lupus and on pain management UA: No UTI c/o nausea Changes from previous H/P or p: Changes Objective Vitals Vital Signs Date Time Temp Pulse Resp B/P (MAP) Pulse Ox O2 Delivery O2 Flow Rate FiO2 09/11/24 09:07 142/85 09/11/24 08:05 Room Air* 0 21 09/11/24 05:00 98.0 94 20 97 98.0 Intake/Output Intake and Output 09/11/24 07:00 Intake Total 1030 ml Balance 1030 ml Intake Oral 30 ml IV Total 1000 ml # Voids 2 General Appearance: Alert, Oriented X3, Cooperative, No acute distress Cardiovascular: Regular rate, Normal S1, Normal S2 Abdomen: Normal bowel sounds, Soft, No tenderness Extremities: No edema Medications Current Medications Medications Dose Ordered Sig/Sumit Route Start Time Stop Time Status Last Admin Dose Admin Losartan Potassium 25 mg DAILY PO 09/11/24 10:00 09/11/24 09:07 25 MG Topiramate 50 mg BID PO 09/10/24 22:00 09/11/24 09:06 50 MG Ondansetron HCl 4 mg Q4HP PRN IV 09/10/24 19:00 09/11/24 03:22 4 MG Acetaminophen 650 mg Q6HP PRN PO 09/10/24 19:00 09/11/24 08:17 650 MG Carbamazepine 200 mg TID PO 09/11/24 06:00 09/11/24 06:10 200 MG Gabapentin 600 mg BID PO 09/11/24 10:00 09/11/24 09:06 600 MG Laboratory Results Laboratory Tests 09/10/24 14:24 09/11/24 05:22 Chemistry Test 09/10/24 14:24 09/11/24 05:22 Calcium Level 9.5 mg/dL (8.7-10.4) 9.4 mg/dL (8.7-10.4) Albumin 4.5 g/dL (3.2-4.8) Total Protein 7.1 g/dL (5.7-8.2) LFT Test 09/11/24 05:22 Alanine Aminotransferase (ALT) 10 U/L (7-40) Alkaline Phosphatase 68 U/L (46-116) Aspartate Amino Transferase (AST) 15 U/L (13-40) Total Bilirubin 0.9 mg/dL (0.2-1.0) Urinalysis Test 09/10/24 16:45 Urine Color Colorless (Yellow) Urine Clarity Turbid (Clear) H Urine pH 8.0 (5.0-9.0) Urine Specific [place] 1.050 (1.001-1.035) Urine Protein Negative (Negative) Urine Ketones Negative (Negative) Urine Blood Negative /uL (Negative) Urine Nitrite Negative (Negative) Urine Bilirubin Negative (Negative) Urine Urobilinogen Normal mg/dL (Negative) Urine Leukocyte Esterase Negative /uL (Negative) Urine RBC <1 /hpf (0 - 4) Urine Microscopic WBC < 1 /HPF (0-5) Urine Squamous Epithelial Cells Few /hpf (<5) Urine Amorphous Crystals Few /hpf (None Seen) Urine Bacteria Few /hpf (None Seen) H Urine Mucus Few (None Seen) Urine Yeast (Budding) Moderate /hpf (None Seen) Urine Glucose Normal mg/dL (Normal) Assessment/Plan Assessment/Plan Metabolic encephalopathy due to seizures Seizures Lupus Fibromyalgia Vitiligo Chronic pain syndrome No UTI HTN Hypokalemia Nausea and vomiting PLAN: Resume home meds Neurology consult No UTI PT eval MSER 15 mg q 8 hrs Tegretol Neurontin Topomax Losartan Replace K+ Plan discussed with: Patient Date of Service: Sep 11, 2024 Billing Provider: JOHAN BOYCE MD Common Visit Codes: NOT BILLABLE JOHAN BOYCE MD Sep 11, 2024 10:02
[2024-09-11 10:36] LABS: Hepatitis B Surface Antigen Negative (Negative); Hepatitis C Antibody Negative (Negative)
[2024-09-11] MEDS: POTASSIUM EFFERVESENT TAB 25 MEQ PO ONE (10:55)
[2024-09-11] MEDS: MORPHINE SULF 15mg ER tab PO ONE (10:55)
[2024-09-11] MEDS: MORPHINE SULF 15mg ER tab PO SCH (13:52)
--- NOTE | 2024-09-11 21:31 | DVHINCON2 ---
Date of service: Sep 11, [address] Garibay Reason for Consultation Seizure History of Present Illness Ms. Zarate is a 54 years old right-handed female with a history of lupus, hypertension, she was taken to the [facility] on 09/10/2024 with a chief complaint of altered mental status. At that time, she is awake, oriented to person, place, good social skills, the history is obtained from her and her daughter, both are poor historian historian I saw her on 04/04/2021 for ALOC A few days after she had run out her gabapentin (prescribed for chronic pain syndrome), he became mentally altered, looking straight forward, disoriented, and her daughter believes it was a seizure and brought her to medical attention She has a history of seizure disorder. She said her seizure started about three years ago, but her daughter related five years. Her daughter relates the patient has had four seizures total, in three of them, the patient is looking straight forward, nonresponsive to her surroundings. Involve them, the patient body curled up and become nonresponsive. She sees Dr. Sharp, and she was said to have seizure disorder, she is on Tegretol 200 mg t.i.d.. She also takes topiramate 25 mg twice a day for other purpose Her daughter relates the patient has had diffuse body pain/nerve pain, and she is on gabapentin, likely 600 mg b.i.d. [phone] UDS, 09/10/2024: Opiates Urinalysis, 09/10/2024: Unremarkable CBC, 09/10/2024: Unremarkable CMP, 09/11/2024: Unremarkable TG/CHO L/LDL/HDL, 04/2021: 158/119/107/46 Chest x-ray, 09/10/2024: No acute disease CT head, 09/10/2024: No acute intracranial abnormality. CT C-spine, 04/04/2021: No acute or aggressive appearing osseous abnormality, nor listhesis. Clinical clearance of the cervical spine is still recommended. Mild cervical spine degenerative changes including small posterior midline disc protrusion at C4-5, as outlined above CT T-spine, 04/04/2021: Minor degenerative changes with small anterior endplate osteophyte formation, without significant disc space narrowing, central canal or foraminal stenosis CT L-spine, 04/04/2021: No acute or aggressive appearing osseous abnormality, nor listhesis. Minor - mild lumbar spondylosis, including mild broad-based disc bulge at L4-5 where there is slight flattening of the ventral thecal sac, without critical central canal or foraminal stenosis Mild symmetric bilateral SI joint sclerosis suggesting degenerative changes. Mild hepatic steatosis. Past Medical History Hypertension, hypothyroidism lupus, chronic throat pain. Possible neck pain Past Surgical History Right foot surgery, hysterectomy, breast surgery, tubal ligation Family History: Hypertension G8 MOTHER Family History Hypertension Social History She is a nontobacco smoker, no history of alcohol recreational substance abuse Allergies: Coded Allergies: Penicillins (Verified Allergy, Severe, ANAPHYLAXIS, 04/03/21) PER DAUGHTER PT DEVELOPS RASH AND THROAT CLOSES Home Meds Reported Medications Belimumab (Benlysta) 200 Mg/Ml Inj, 200 MG SC, INJ 09/11/24 Morphine Sulfate (Morphine Sulfate) 15 Mg Tab, 1 TAB PO TID, #90 TAB 09/11/24 Topiramate (Topiramate) 25 Mg Tab, 1 TAB PO BID, #60 TAB 09/11/24 Methocarbamol (Methocarbamol) 750 Mg Tab, 750 MG PO, TAB 09/10/24 Carbamazepine (Carbamazepine) 200 Mg Tab, 200 MG PO Q8HR for 30 Days, MG 04/04/21 Propranolol Hcl (Inderal La) 60 Mg Cap, 60 MG PO TID, CAP 04/04/21 Hydrocodone-Acetaminophen ([place] 5-325 mg) 5-325 Tab, 1 TAB PO Q8HPRN PRN for ANXIETY, #20 TAB 04/04/21 Magnesium Oxide (mg Supplement (Magnesium-Oxide) 400 Mg Tab, 1 TAB PO DAILYPRN 04/04/21 Losartan Potassium (Losartan Potassium) 25 Mg Tab, 1 TAB PO QAM for blood pressure 04/04/21 Prednisone (Prednisone) 5 Mg Tab, 1 TAB PO DAILYPRN 04/04/21 Gabapentin (Gabapentin) 600 Mg Tab, TAB PO 04/04/21 Ibuprofen Micronized (Ibuprofen) 800 Mg Tab, 1 TAB PO BIDPRN PRN for Generalized pain per pt 04/04/21 Current Medications Current Medications Medications (Trade) Dose Ordered Sig/Sumit Route PRN Reason Start Time Stop Time Status Last Admin Losartan Potassium (Cozaar Tablet) 25 mg DAILY PO 09/11/24 10:00 09/11/24 09:07 Topiramate (Topamax) 50 mg BID PO 09/10/24 22:00 09/11/24 21:18 Carbamazepine (TEGretol TABLET) 200 mg TID PO 09/11/24 06:00 09/11/24 21:19 Gabapentin (Neurontin Capsule) 600 mg BID PO 09/11/24 10:00 09/11/24 21:18 Morphine Sulfate (Oramorph Sustained Release Tab) 15 mg Q8HR PO 09/11/24 14:00 09/11/24 21:19 Review of Systems As above, the other system negative Vital Signs Vital Signs Date Time Temp Pulse Resp B/P (MAP) Pulse Ox O2 Delivery O2 Flow Rate FiO2 09/11/24 17:00 99.9 96 15 117/62 (80) 97 99.9 09/11/24 08:05 Room Air* 0 21 Physical Exam GENERAL EXAM: General: the patient is well developed and nourished. No acute distress. HEENT: Normocephalic, neck is supple, no carotid bruits. No mass RESPIRATORY: Normal respiratory effort with symmetrical lung expansion. Lungs clear to auscultation. CARDIOVASCULAR: Regular rate and rhythm with no murmurs. S1, S2. ABDOMEN: Soft, nontender, normal bowel sound NEUROLOGICAL: MENTAL STATUS: Awake and alert. Oriented to person, place SPEECH, LANGUAGE, HIGHER CORTICAL FUNCTION: no aphasia or dysathria. CRANIAL NERVES: #2: Intact visual griffith to confrontation. The optic discs were sharp #3,4,6: Pupils are equal, round and reactive. EOMs full and conjugate. No nystagmus. #5: Facial sensation intact in all three divisions bilaterally. Mandibular strength intact. #7: Facial muscles symmetrical and strength intact. #8: Hearing grossly normal to voice. #9,10: Uvula and soft palate rise in the midline. Swallow and voice are normal. #11: Trapezius and sternomastoid strength intact bilaterally. #12: Tongue midline. No fasciculations or atrophy. SENSATION: Sensation to touch and pinprick is normal. MOTOR: Normal tone in the upper and lower extremity. Normal muscle bulk. No fasciculations. Mild asterixis in the hands, possibly the right side more affected. Muscle strength of the major groups in the upper extremities is 5/5. Muscle strength of the major groups in the lower extremities is 5/5. REFLEXES: Deep tendon reflexes are symmetrical. No pathological reflexes. CEREBELLAR/COORDINATION: Finger to nose tests are normal bilaterally. GAIT/STATION: deferred Labs/Diagnostic Data Labs Test 09/11/24 05:22 09/10/24 17:30 09/10/24 16:45 09/10/24 14:24 Range/Units Sodium Level 134 L 136-145 mmol/L Potassium Level 3.4 L 3.5-5.1 mmol/L Chloride Level 101 98-107 mmol/L Carbon Dioxide Level 21 20-31 mmol/L Anion Gap 12 5-15 Blood Urea Nitrogen < 5 L 9-23 mg/dL Creatinine 0.58 0.550-1.02 mg/dL Glomerular Filtration Rate Calc 107 >90 mL/min BUN/Creatinine Ratio 8.6 L 10.0-20.0 Serum Glucose 113 H 74-106 mg/dL Calcium Level 9.4 8.7-10.4 mg/dL Total Bilirubin 0.9 0.2-1.0 mg/dL Aspartate Amino Transferase (AST) 15 13-40 U/L Alanine Aminotransferase (ALT) 10 7-40 U/L Alkaline Phosphatase 68 46-116 U/L Total Protein 7.1 5.7-8.2 g/dL Albumin 4.5 3.2-4.8 g/dL Hepatitis B Surface Antigen Negative Negative Hepatitis C Antibody Negative Negative Troponin I High Sensitivity 12 </=34 ng/L Urine Color Colorless Yellow Urine Clarity Turbid H Clear Urine pH 8.0 5.0-9.0 Urine Specific [place] 1.050 H 1.001-1.035 Urine Protein Negative Negative Urine Ketones Negative Negative Urine Blood Negative Negative /uL Urine Nitrite Negative Negative Urine Bilirubin Negative Negative Urine Urobilinogen Normal Negative mg/dL Urine Leukocyte Esterase Negative Negative /uL Urine RBC <1 0 - 4 /hpf Urine Microscopic WBC < 1 0-5 /HPF Urine Squamous Epithelial Cells Few <5 /hpf Urine Amorphous Crystals Few None Seen /hpf Urine Bacteria Few H None Seen /hpf Urine Mucus Few None Seen Urine Yeast (Budding) Moderate None Seen /hpf Urine Glucose Normal Normal mg/dL Urine Opiates Screen Pos NEGATIVE Urine Fentanyl Screen Neg NEGATIVE Urine Barbiturates Screen Neg NEGATIVE Urine Phencyclidine Screen Neg NEGATIVE Urine Amphetamines Screen Neg NEGATIVE Urine Benzodiazepines Screen Neg NEGATIVE Urine Cocaine Screen Neg NEGATIVE Urine Cannabinoids Screen Neg NEGATIVE White Blood Count 5.1 4.4-10.8 10^3/uL Red Blood Count 4.60 4.0-5.20 10^6/uL Hemoglobin 15.0 12.2-16.2 g/dL Hematocrit 43.3 36.0-46.0 % Mean Corpuscular Volume 94.1 80.0-100.0 fL Mean Corpuscular Hemoglobin 32.6 H 28.0-32.0 pg Mean Corpuscular Hemoglobin Concent 34.6 32.0-36.0 g/dL Red Cell Distribution Width 12.9 11.8-14.3 % Platelet Count 183 140-450 10^3/uL Mean Platelet Volume 8.4 6.9-10.8 fL Neutrophils (%) (Auto) 70.9 37.0-80.0 % Lymphocytes (%) (Auto) 18.2 10.0-50.0 % Monocytes (%) (Auto) 9.3 0.0-12.0 % Eosinophils (%) (Auto) 0.9 0.0-7.0 % Basophils (%) (Auto) 0.7 0.0-2.0 % Neutrophils # (Auto) 3.6 1.6-8.6 10 ^3/uL Lymphocytes # (Auto) 0.9 0.4-5.4 10 ^3/uL Monocytes # (Auto) 0.5 0-1.3 10 ^3/uL Eosinophils # (Auto) 0 0-0.8 10 ^3/uL Basophils # (Auto) 0 0-0.2 10 ^3/uL Nucleated Red Blood Cells 0.2 % Assessment Seizure disorder, partial complex seizure Altered mental status Metabolic encephalopathy ? Prolonged postictal Status epilepticus Plan/Recommendation Monitoring Supportive treatment [employer], 600 mg b.i.d. Carbamazepine, 200 mg t.i.d. Topiramate 25 mg b.i.d. DVT prophylaxis GI prophylaxis This medical document was created using an electronic medical record system with [employer] dictation system. Although this document has been carefully reviewed, there may still be some phonetic and typographical errors. These areas are purely typographical due to imperfections of the software programs, and do not reflect any compromise in the patient's medical care. Plan discussed with: Daughter, Other ALFREDO VERDUZCO MD Sep 11, 2024 21:30
[2024-09-11] MEDS: TOPIRAMATE 25 MG TAB PO SCH (22:15)
[2024-09-12 01:00] VITALS: BP 126/73; PULSE 81; RESP 17; TEMP 98; O2SAT 95
[2024-09-12 05:00] VITALS: BP 102/52; PULSE 86; RESP 18; TEMP 97.6; O2SAT 95
[2024-09-12 06:53] LABS: Anion Gap 12 (5-15); Calcium 8.9 mg/dL (8.7-10.4); Carbon Dioxide 22 mmol/L (20-31); Potassium 3.6 mmol/L (3.5-5.1)
[2024-09-12 06:54] LABS: Chloride 98 mmol/L (98-107); Sodium 132 mmol/L (136-145)
[2024-09-12 06:59] LABS: BUN/Creatinine Ratio 11.5 (10.0-20.0); Glucose 95 mg/dL (74-106)
[2024-09-12 07:00] LABS: Magnesium 2.4 mg/dL (1.6-2.6)
[2024-09-12 07:02] LABS: Blood Urea Nitrogen 7 mg/dL (9-23)
--- NOTE | 2024-09-12 08:54 | DVHPN2 ---
Progress Note - Dictate Date Seen: Sep 12, 2024 Medical Necessity Reason Pt with a Central, PICC or Fol: No Subjective Ms. Zarate is a 54 years old right-handed female with a history of lupus, hypertension, she was taken to the [facility] on 09/10/2024 with a chief complaint of altered mental status I saw her on 04/04/2021 for ALOC I have seen and examined the patient, I have talked to her nurse, she is doing fine, no seizure activity or confusion spells, she has oriented x3, able to maintain good conversation She has a lot of tenderness to palpation in the back UDS, 09/10/2024: Opiates Urinalysis, 09/10/2024: Unremarkable CBC, 09/10/2024: Unremarkable CMP, 09/11/2024: Unremarkable TG/CHO L/LDL/HDL, 04/2021: 158/119/107/46 Chest x-ray, 09/10/2024: No acute disease CT head, 09/10/2024: No acute intracranial abnormality. CT C-spine, 04/04/2021: No acute or aggressive appearing osseous abnormality, nor listhesis. Clinical clearance of the cervical spine is still recommended. Mild cervical spine degenerative changes including small posterior midline disc protrusion at C4-5, as outlined above CT T-spine, 04/04/2021: Minor degenerative changes with small anterior endplate osteophyte formation, without significant disc space narrowing, central canal or foraminal stenosis CT L-spine, 04/04/2021: No acute or aggressive appearing osseous abnormality, nor listhesis. Minor - mild lumbar spondylosis, including mild broad-based disc bulge at L4-5 where there is slight flattening of the ventral thecal sac, without critical central canal or foraminal stenosis Mild symmetric bilateral SI joint sclerosis suggesting degenerative changes. Mild hepatic steatosis. vital signs Vital Sign Date Time Temp Pulse Resp B/P (MAP) Pulse Ox O2 Delivery O2 Flow Rate FiO2 09/12/24 05:00 97.6 86 18 102/52 (69) 95 97.6 09/11/24 20:00 Room Air* 0 21 Total Intake and Output 09/11/24 09/11/24 09/12/24 15:00 23:00 07:00 Intake Total 400 ml 700 ml Balance 400 ml 700 ml medications Current Medications Medications Dose Ordered Sig/Sumit Route Start Time Stop Time Status Last Admin Dose Admin Losartan Potassium 25 mg DAILY PO 09/11/24 10:00 09/11/24 09:07 25 MG Ondansetron HCl 4 mg Q4HP PRN IV 09/10/24 19:00 09/11/24 10:56 4 MG Acetaminophen 650 mg Q6HP PRN PO 09/10/24 19:00 09/11/24 19:12 650 MG Carbamazepine 200 mg TID PO 09/11/24 06:00 09/12/24 05:54 200 MG Gabapentin 600 mg BID PO 09/11/24 10:00 09/11/24 21:18 600 MG Morphine Sulfate 15 mg Q8HR PO 09/11/24 14:00 09/12/24 05:56 15 MG Topiramate 25 mg BID PO 09/11/24 22:15 objective General: the patient is well developed and nourished. No acute distress. Diffuse tenderness to palpation in the back MENTAL STATUS: Subjective SPEECH, LANGUAGE, HIGHER CORTICAL FUNCTION: no aphasia or dysathria. CRANIAL NERVES: Pupils are equal, round and reactive. EOMs full and conjugate. No nystagmus. Facial sensation intact in all three divisions bilaterally. Mandibular strength intact. Facial muscles symmetrical and strength intact. SENSATION: Sensation to touch and pinprick is normal. MOTOR: Normal tone in the upper and lower extremity. Normal muscle bulk. No fasciculations. Mild asterixis in the hands, possibly the right side more affected. Muscle strength of the major groups in the upper extremities is 5/5. Muscle strength of the major groups in the lower extremities is 5/5. REFLEXES: Deep tendon reflexes are symmetrical. No pathological reflexes. CEREBELLAR/COORDINATION: Finger to nose tests are normal bilaterally. GAIT/STATION: deferred laboratory and microbiology Laboratory Tests 09/12/24 05:54 09/10/24 14:24 Test 09/12/24 05:54 Range/Units Serum Glucose 95 74-106 mg/dL Problem List Seizure disorder, partial complex seizure, ? With a typical features Altered mental status Metabolic encephalopathy ? Prolonged postictal Status epilepticus Diffuse back pain Assessment/Plan Monitoring Supportive treatment EEG Telemetry Gabapentin, 600 mg b.i.d. Carbamazepine, 200 mg t.i.d. Topiramate 25 mg b.i.d. DVT prophylaxis GI prophylaxis This medical document was created using an electronic medical record system with [employer] dictation system. Although this document has been carefully reviewed, there may still be some phonetic and typographical errors. These areas are purely typographical due to imperfections of the software programs, and do not reflect any compromise in the patient's medical care. Prognosis poor Plan discussed with: Patient, Other Total Time (mins): 35 ALFREDO VERDUZCO MD Sep 12, 2024 08:54
[2024-09-12 09:00] VITALS: BP 121/69; PULSE 74; RESP 16; TEMP 97.9; O2SAT 98
[2024-09-12] MEDS ORDERED: GABA-339 PO (10:09)
--- NOTE | 2024-09-12 10:12 | DVHDS2 ---
Discharge Summary Date of Admission Sep 10, 2024 at 18:56 Date of Discharge: Sep 12, 2024 Labs/Diagnostic Data: Laboratory Results Test 09/12/24 05:54 09/11/24 05:22 09/10/24 17:30 09/10/24 16:45 Sodium Level 132 mmol/L (136-145) Potassium Level 3.6 mmol/L (3.5-5.1) Chloride Level 98 mmol/L (98-107) Carbon Dioxide Level 22 mmol/L (20-31) Anion Gap 12 (5-15) Blood Urea Nitrogen 7 mg/dL (9-23) Creatinine 0.61 mg/dL (0.550-1.02) Glomerular Filtration Rate Calc 106 mL/min (>90) BUN/Creatinine Ratio 11.5 (10.0-20.0) Serum Glucose 95 mg/dL (74-106) Calcium Level 8.9 mg/dL (8.7-10.4) Magnesium Level 2.4 mg/dL (1.6-2.6) Total Bilirubin 0.9 mg/dL (0.2-1.0) Aspartate Amino Transferase (AST) 15 U/L (13-40) Alanine Aminotransferase (ALT) 10 U/L (7-40) Alkaline Phosphatase 68 U/L (46-116) Total Protein 7.1 g/dL (5.7-8.2) Albumin 4.5 g/dL (3.2-4.8) Hepatitis B Surface Antigen Negative (Negative) Hepatitis C Antibody Negative (Negative) Troponin I High Sensitivity 12 ng/L (</=34) Urine Color Colorless (Yellow) Urine Clarity Turbid (Clear) Urine pH 8.0 (5.0-9.0) Urine Specific [place] 1.050 (1.001-1.035) Urine Protein Negative (Negative) Urine Ketones Negative (Negative) Urine Blood Negative /uL (Negative) Urine Nitrite Negative (Negative) Urine Bilirubin Negative (Negative) Urine Urobilinogen Normal mg/dL (Negative) Urine Leukocyte Esterase Negative /uL (Negative) Urine RBC <1 /hpf (0 - 4) Urine Microscopic WBC < 1 /HPF (0-5) Urine Squamous Epithelial Cells Few /hpf (<5) Urine Amorphous Crystals Few /hpf (None Seen) Urine Bacteria Few /hpf (None Seen) Urine Mucus Few (None Seen) Urine Yeast (Budding) Moderate /hpf (None Seen) Urine Glucose Normal mg/dL (Normal) Urine Opiates Screen Pos (NEGATIVE) Urine Fentanyl Screen Neg (NEGATIVE) Urine Barbiturates Screen Neg (NEGATIVE) Urine Phencyclidine Screen Neg (NEGATIVE) Urine Amphetamines Screen Neg (NEGATIVE) Urine Benzodiazepines Screen Neg (NEGATIVE) Urine Cocaine Screen Neg (NEGATIVE) Urine Cannabinoids Screen Neg (NEGATIVE) Test 09/10/24 14:24 White Blood Count 5.1 10^3/uL (4.4-10.8) Red Blood Count 4.60 10^6/uL (4.0-5.20) Hemoglobin 15.0 g/dL (12.2-16.2) Hematocrit 43.3 % (36.0-46.0) Mean Corpuscular Volume 94.1 fL (80.0-100.0) Mean Corpuscular Hemoglobin 32.6 pg (28.0-32.0) Mean Corpuscular Hemoglobin Concent 34.6 g/dL (32.0-36.0) Red Cell Distribution Width 12.9 % (11.8-14.3) Platelet Count 183 10^3/uL (140-450) Mean Platelet Volume 8.4 fL (6.9-10.8) Neutrophils (%) (Auto) 70.9 % (37.0-80.0) Lymphocytes (%) (Auto) 18.2 % (10.0-50.0) Monocytes (%) (Auto) 9.3 % (0.0-12.0) Eosinophils (%) (Auto) 0.9 % (0.0-7.0) Basophils (%) (Auto) 0.7 % (0.0-2.0) Neutrophils # (Auto) 3.6 10 ^3/uL (1.6-8.6) Lymphocytes # (Auto) 0.9 10 ^3/uL (0.4-5.4) Monocytes # (Auto) 0.5 10 ^3/uL (0-1.3) Eosinophils # (Auto) 0 10 ^3/uL (0-0.8) Basophils # (Auto) 0 10 ^3/uL (0-0.2) Nucleated Red Blood Cells 0.2 % Other Laboratory Tests 09/12/24 05:54 09/10/24 14:24 Brief Hx & Hospital Course: Final diagnoses: Metabolic encephalopathy due to seizures and prolonged postictal state Prolonged postictal state Seizures Lupus Fibromyalgia Vitiligo Chronic pain syndrome No UTI HTN Hypokalemia Nausea and vomiting 54-year-old female who was admitted for metabolic encephalopathy and seizures According to family she had 4 seizures Apparently she ran out of her gabapentin that she takes for seizures She is also taking other seizure medications She was admitted here and was resume her home medications and no more seizures since admission CT scan of the head was done was negative She was seen by Neurology and recommended to continue the same home medications She can be discharged home to continue same seizure medications and give a refill for gabapentin and follow up with the primary care physician and neurologist as soon as possible as an outpatient Condition at Discharge: Stable Final Diagnosis/Problems List Metabolic encephalopathy due to seizures and postictal state Prolonged postictal state Seizures Lupus Fibromyalgia Vitiligo Chronic pain syndrome No UTI HTN Hypokalemia Nausea and vomiting Discharge Disposition: Home SNF Discharge Will this Physician continue t: No Discharge Instruct/Medications Diet: Cardiac 2g Na,low cholest Activity: No Restrictions, As Tolerated Follow Up/Referral: PCP HANNY Medications: Same home meds Refil gabapentin Discharge Statement: "Patient was advised to return to the ER or call 911 if any headaches, dizziness, shortness of breath, chest pain, abdominal pain, bleeding, fevers, or worsening of medical condition. Patient was counseled about treatment plan, medications, possible side effects, patientverbalized understanding. All questions were answered to the best of my ability. This discharge took greater then 30 minutes in planning, reviewing documentation, counseling the patient, and discussing with other team members." ASSESSMENT ASSESSMENT Assessment Metabolic encephalopathy due to seizures and postictal state Prolonged postictal state Seizures Lupus Fibromyalgia Vitiligo Chronic pain syndrome No UTI HTN Hypokalemia Nausea and vomiting Date of Service: Sep 12, 2024 Billing Provider: JOHAN BOYCE MD Common Visit Codes: NOT BILLABLE JOHAN BOYCE MD Sep 12, 2024 10:11
[2024-09-12 10:59] VITALS: BP 121/69; PULSE 74; RESP 16; TEMP 36.6; O2SAT 98
[2024-09-12 12:40] VITALS: BP 121/68; PULSE 84; RESP 17; TEMP 98.3; O2SAT 96
[2024-09-12] MEDS ORDERED: PRED10TA PO (13:03)
[2024-09-12] MEDS ORDERED: LOSA-533 PO (13:03)
--- NOTE | 2024-09-13 21:26 | DVHEEG2 ---
Neurology EEG Procedural Note Procedural Note EXAM DATE: 09/12/24 REFERRING DOCTOR: Dr. Verduzco TECHNIQUE: Eighteen channels of EEG, 2 channels of EOG, and 1 channel of EKG were recorded using the [employer] 10/20 system. CLINICAL DATA: The patient was referred for an EEG evaluation for the evidence of seizure disorder. MEDICATIONS: Seizure chart BACKGROUND ACTIVITY: While the patient was awake, the background activity consisted of fairly regulated 8-9 Hz rhythmic waveforms, symmetrically distributed over both posterior quadrants and was reactive to eye opening. ACTIVATION: Hyperventilation: Not done Photic Stimulation: Not done Sleep: Not seen IMPRESSION: This is a normal EEG. No focal, lateralized, or epileptiform features are noted. If clinically indicated to rule out a seizure disorder, recommend repeat EEG with sleep deprivation. The EKG channel showed a regular heart rate of 84 per minute. [place] [address] ALFREDO VERDUZCO MD Sep 13, 2024 21:26
== END 2024-09-12 14:40 | disposition home or self-care (01) | DRG 101 ==
LOC: EDBD 13:58 → ER 14:02 → OVERFLOW 18:56 → EAST 22:02
PROVIDERS: ADMIT Internal Medicine Geriatric Medicine; ATTEND Internal Medicine Geriatric Medicine
DX: G40.201 Localization-related (focal) (partial) symptomatic epilepsy and epileptic syndromes with complex partial seizures, not intractable, with status epilepticus (principal); E87.6 Hypokalemia; M79.7 Fibromyalgia; L80 Vitiligo; I10 Essential (primary) hypertension; G89.4 Chronic pain syndrome; F17.200 Nicotine dependence, unspecified, uncomplicated; E03.9 Hypothyroidism, unspecified; K76.0 Fatty (change of) liver, not elsewhere classified; Z88.0 Allergy status to penicillin; Z79.2 Long term (current) use of antibiotics; Z79.899 Other long term (current) drug therapy; Z79.891 Long term (current) use of opiate analgesic; Z79.1 Long term (current) use of non-steroidal anti-inflammatories (NSAID); Z82.49 Family history of ischemic heart disease and other diseases of the circulatory system; Z90.710 Acquired absence of both cervix and uterus
CPT/HCPCS: 36415; 70450; 71045; 74177; 80048; 80053; 80307; 81001; 83735; 84484; 85025; 86803; 87340; 93005; 95819; 96361; 96374; 97163; 99291; G0378; J2405